=== PATIENT | female | born 1950 | race Caucasian/White ===

== ENCOUNTER 2024-01-29 21:00 | Emergency (ER) | payer MEDICARE, OTHER, SELFPAY ==
[2024-01-29 21:03] VITALS: BP 136/81
[2024-01-29 21:57] VITALS: BP 159/80
--- NOTE | 2024-01-29 22:13 | ED.GENMED ---
History of Present Illness
General
Chief Complaint: Back Pain
Source: patient
Exam Limitations: none
Time Seen by Provider: 01/29/24 21:38
History of Present Illness
History of Present Illness:
This is a 73 year old female that comes in with c/o right low back/hip pain. States that a week ago on Wednesday she started with pain on the right flank area. State that she thought she pulled a muscle but it kept getting worse. States that they went
to [place] for vacation and they came home today. States that when she was out in the boat every wave that they went over she would scream with pain. Yesterday the pain was terrible. States that she has been eating Tylenol 2 tabs every 4 hours. States
that they drove home and the bumps would increase her pain. States that she did fall a month ago but she was fine after the fall. Denies any fever, chills, chest pain, SOB, nausea, vomiting, abd pain, headache, dizziness, urinary burning.
Past History
Past History
ED Past Medical History: Arrthythmia (Atrial fib), HTN, Hypercholesterolemia and Psychiatric (Anxiety, Depression, )
ED Past Surgical History: Cholecystectomy, Orthopedic (Left knee torn Meniscus, Left hip fracture with bolt) and Other (cataracts, Bariatric surgery)
Social History
Tobacco: Non-smoker
Alcohol: Occasional
Personal:
Living: with family
Review of Systems
Review of Systems
All Other Systems: ROS reviewed and negative except as documented in HPI and ROS
Constitutional: Reports no symptoms; Denies fever or chills
EENT: Reports no symptoms
Respiratory: Reports no symptoms; Denies cough
Cardiac: Denies chest pain
ABD/GI: Reports no symptoms; Denies abdominal pain, nausea, vomiting or diarrhea
: Reports no symptoms; Denies dysuria, frequency or urgency
Musculoskeletal: Reports back pain (Right low back that comes around to the hip)
Skin: Reports no symptoms
Neurological: Reports no symptoms; Denies dizzy or headache
Psychiatric: Reports no symptoms
Phy Exam
General Physical Exam
General Presentation: no apparent distress
General age: appears stated age
General Skin: warm and dry
General Habitus: elderly
General Mental: alert
General Hydration: appears well hydrated
ENT Exam
ENT Exam: TM's normal, pharynx normal and neck supple
Eye Exam
Eye Exam: EOMI
Cardiovascular Exam
Cardiovascular Exam: regular rate/rhythm, no edema, no murmur and normal peripheral pulses
Pulmonary Exam
Pulmonary Exam: lungs clear, no respiratory distress, no rales, chest non tender, no crackles, no rhonchi, no wheezing and no cough
Gastrointestinal Exam
Gastrointestinal Exam: normal bowel sounds, non tender, soft, no organomegaly, no pulsatile mass and non distended
Musculoskeletal Exam
Musculoskeletal Exam: full ROM and other (Negative for spinal tenderness. Slight right lateral low back tenderness with palpation. Negative discomfort with inversion or eversion or flexion of the knee)
Skin Exam
Skin Exam: normal color, warm/dry, no rash and no petechia
Psychiatric Exam
Psychiatric Exam: normal mood/affect
Course
Orders/Labs/Results
Orders:
Orders
01/29/24 22:12
Hip, Right 2-3 Views [CR Hip - RT w/wo Pel 2-3 Vw*] Urgent
Comment:
Reason For Exam: Pain
Include a pelvis x-ray?: Yes
Lumbar Spine Complete, 4 View [CR Lumbar Spine Comp Min 4 Vw*] Urgent
Comment:
Reason For Exam: right side low back pain
01/29/24 22:15
Urinalysis Reflex To Culture Urgent
Date Specimen was Collected: 01/29/24
Time Specimen was Collected: 22:14
Urine Microscopic Reflex Cult Urgent
Urine Culture Urgent
JUAN Source: U
Specimen Description:
Date Specimen was Collected: 01/29/24
Time Specimen was Collected: 22:14
01/29/24 23:08
CT Abd/pel Without Iv Or Oral Urgent
Comment:
Reason For Exam: right sided flank pain
Abnormal Lab Results
01/29/24
22:15
Urine Ketones Trace A
(Negative)
Ur Occult Blood Reflex 2+ A
(Negative)
Urine Bilirubin 1+ A
(Negative)
Leukocyte Esterase Rfl 2+ A
(Negative)
Urine RBC 3-6 A /HPF
(0-2)
Urine WBC (Reflex) 11-15 A /HPF
(0-5)
Urine Bacteria (Reflex) Moderate A
(Negative)
Vital Signs
Initial and Last Documented VS:
Initial Vital Signs
Temp Pulse Resp BP Pulse Ox
98.3 F 74 20 136/81 98
01/29/24 21:03 01/29/24 21:03 01/29/24 21:03 01/29/24 21:03 01/29/24 21:03
Last Documented Vital Signs
Temp Pulse Resp BP Pulse Ox
97.8 F 64 18 148/64 100
01/30/24 00:21 01/30/24 00:21 01/30/24 00:21 01/30/24 00:21 01/30/24 00:21
MDM/Problems Addressed
Differential Diagnosis Includes:
Musculoskeletal pain. Sciatic pain.
MDM/Problems Addressed:
This is a 73 year old female that comes in with c/o pain in the right low back that comes around to the hip. states that this started a week ago on Wednesday. States that she did fall a month ago but has been fine.
Will get X-ray of the Lumbar spine and right hip.
Back into see patient. Reviewed CT scan and had reviewed X-rays earlier. There is degenerative changes in the spine, hips and pelvis. Patient also has a Urinary tract infection. Will treat with Monural for the infection. Patient can use Tylenol and
Ibuprofen for pain with heat or ice which ever makes her feel better. Will also give steroids for a few days to decrease any inflammation. Patient to follow up with the family doctor. Return with any concerns .
Chronic conditions affecting care:
NA
Acute Exacerbation and/or Progression of Chronic Illness:
NA
*Radiology
Radiology exam reviewed: preliminary read by ED provider (Lumbar spine- negative for fractures, degenerative changes. Right hip- Negative for fracture or dislocation. Degenerative changes. ), radiology read reviewed (CT night hawk-No acute
findings. No findings to suggest etiology for right flank pain. No obstructing ureteral calculus, hydrouretreonephrosis or signs of pyelonephritis. No acute bowel findings. Moderate stool burden. correlate for history of Constipation. Normal
appendix. cholecystectomy. ), all reviewed NAD by ED Provider (CT cont- Extrahepatic ductal dilation which may be physiologic postoperatively. No evidence for pancreatitis. No AAA. Incidental findings: post sleeve gastrectomy anatomy. Sliding hiatal
hernia. Nonobstructing left renal calculus. degenerative changes in the spine, pelvis and hips. Previous screw ) and other (CT cont- Fixation of a healed eft femoral neck fracture. 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
Generalized osteopenia. )
*Pulse Oximetry
Patient hypoxic: no
*EKG
Interpreted by ED Provider?: NA
Rate: EKG- N/A
*Chemical Processing Equipment Repairer Interpretation
Rate: Chemical Processing Equipment Repairer- N/A
*Critical Care Note
Total Time (30-74mins, 75-104mins- exclusive of procedures): Not Applicable
ED Attending Note
-
Portions of this chart may have been created with voice recognition software.� Occasional wrong word or��sound alike� substitutions may have occurred due to the inherent limitations of voice recognition software.
Discharge Plan
Departure
Patient Disposition: Home (Routine Discharge)
Date of Disposition: 01/30/24
Time of Disposition: 01:28
Patient with high blood pressure during this ER visit?: Yes
Condition: Good
Covid-19: Not Applicable
Discharge Problem:
Urinary tract infection, Degenerative changes spine and hip
Instructions: Low Back Pain (DC), Urinary Tract Infection, Adult ED, Hip Pain ED, BLOOD PRESSURE
Prescriptions:
New
prednisone 20 mg tablet
40 mg PO DAILY Qty: 8 0RF
No Action
atorvastatin 10 MG tablet
10 mg PO DAILY
acetaminophen [Tylenol Extra Strength] 500 MG tablet
1,000 - 1,500 mg PO BIDPRN PRN (Reason: mild pain)
citalopram 20 MG tablet
20 mg PO DAILY
hydrochlorothiazide 12.5 MG tablet
12.5 mg PO DAILY
levothyroxine 137 MCG capsule
137 mcg PO DAILY
aspirin 325 MG tablet
325 mg PO DAILY Qty: 25 0RF
oxycodone 5 MG tablet
5 mg PO Q6HPRN PRN (Reason: severe pain ) Qty: 4 0RF
polyethylene glycol 3350 17 GRAMS powder in packet
17 grams PO DAILY PRN (Reason: constipation) Qty: 14 0RF
ferrous gluconate 240 MG tablet
240 mg PO DAILY Qty: 30 0RF
Referrals:
Landy Zayas, [Family Provider] - Follow up in 5-7 days
Activity Restrictions/Additional Instructions:
As discussed, your urine shows that you have a UTI. Your CT scan shows that there are degenerative changes in the spine, Hip and pelvis. You have been given a steroid for the next 4 days to help decrease an inflammation. This has been sent to your
Pharmacy. You may also use Tylenol 1000mg every 6 hours for pain and Ibuprofen 600mg every 6 hours for pain with food. Follow up with the family doctor for recheck. You may also wish to see your mobile marketing specialist for further evaluation. IF YOU
HAVE INCREASED OR CHANGING PAIN, OR YOU HAVE ANY OTHER CONCERNS PLEASE RETURN TO THE EMERGENCY ROOM.
Interventions
Interventions:
*Risk Screen - Suicide Last Done: 01/29/24 21:03
*General Assessment Last Done: 01/29/24 21:03
*Neglect/Abuse Screening Last Done: 01/29/24 21:03
ED-Musculoskeletal Assessment Last Done: 01/29/24 21:56
Discharge Date and Time
Print Language: CROATIAN
[2024-01-29 22:21] LABS: Urine Albumin Negative (Neg - Trace); Urine Bilirubin 1+ (Negative); Urine Character Clear (Clear); Urine Color Yellow; Urine Glucose Negative (Negative); Urine Ketone Trace (Negative); Urine Leukocyte 2+ (Negative); Urine Nitrite Negative (Negative); Urine Occult Blood 2+ (Negative); Urine Urobilinogen 1+ (Neg - 1+)
[2024-01-29 22:32] LABS: Urine Squamous Cell 16-20 /LPF (Few)
[2024-01-29 22:33] LABS: Urine Bacteria Moderate (Negative)
[2024-01-30 00:21] VITALS: BP 148/64
[2024-01-30] MEDS: DELTASONE 40 MG PO (01:43)
[2024-01-30] MEDS: MONUROL 3 GM PO (01:43)
== END 2024-01-30 02:06 | disposition home or self-care (01) ==
LOC: EMR 21:00
PROVIDERS: Clinical Nurse Specialist Family Health; EMERGENCY PHYSICIAN Emergency Medicine; FAMILY PHYSICIAN Family Medicine
DX: N39.0 Urinary tract infection, site not specified (principal); G31.89 Other specified degenerative diseases of nervous system; I48.91 Unspecified atrial fibrillation; I10 Essential (primary) hypertension; E78.00 Pure hypercholesterolemia, unspecified; F41.8 Other specified anxiety disorders; Z90.49 Acquired absence of other specified parts of digestive tract; Z98.84 Bariatric surgery status
CPT/HCPCS: 99284; 72110; 73502; 74176; 81003; 81015; 87086

== ENCOUNTER → 2024-02-01 12:40 | Outpatient (REF) | payer MEDICARE, OTHER, SELFPAY | LOC: HWRAD 12:40 | PROVIDERS: ATTENDING PHYSICIAN Family Medicine | DX: R93.89 Abnormal findings on diagnostic imaging of other specified body structures (principal) | CPT/HCPCS: 76830; 76856 ==

== ENCOUNTER 2025-07-03 06:28 | Day surgery (SDC) | payer MEDICARE, OTHER, SELFPAY | END 2025-07-03 11:03 | disposition home or self-care (01) | LOC: GI 06:28 | PROVIDERS: ATTENDING PHYSICIAN Internal Medicine Gastroenterology; FAMILY PHYSICIAN Family Medicine | DX: Z12.11 Encounter for screening for malignant neoplasm of colon (principal); K64.9 Unspecified hemorrhoids; K57.30 Diverticulosis of large intestine without perforation or abscess without bleeding; D12.3 Benign neoplasm of transverse colon; D12.2 Benign neoplasm of ascending colon; D12.5 Benign neoplasm of sigmoid colon | CPT/HCPCS: 45385; 45380; 88305 ==